=== PATIENT | female | born 1950 | race Caucasian/White ===

== ENCOUNTER → 2024-07-12 | Outpatient (CLI) | payer MEDICARE, BC, SELFPAY ==
[2024-07-12 15:13] LABS: Collection Type, Urine Clean Catch
[2024-07-12 15:33] LABS: Basophils % (Auto) 1 % (0-2.5); Eosinophils # (Auto) 0.2 Thou/mm3 (0.0-0.5); Eosinophils % (Auto) 3 % (0-10); Hematocrit 39.4 % (36.0-46.0); Hemoglobin 13.6 g/dL (12.0-16.0); Immature Granulocytes % (Auto) 0 % (0-0); Immature Granulocytes Auto 0.03 Thou/mm3 (0.00-0.00); Lymphocytes # (Auto) 2.1 Thou/mm3 (1.0-4.8); Lymphocytes % (Auto) 30 % (10-50); Mean Corpuscular HGB Conc 34.5 g/dl (31.0-37.0); Mean Corpuscular Hemoglobin 29.5 pg (25.0-35.0); Mean Corpuscular Volume 86 fL (80-100); Monocytes # (Auto) 0.5 Thou/mm3 (0.0-0.8); Monocytes % (Auto) 7 % (0-12); Neutrophils # (Auto) 4.2 Thou/mm3 (1.8-7.7); Neutrophils % (Auto) 59 % (37-80); Nucleated Red Blood Cell % 0 /100 WBC (0); Platelet Count 230 Thou/mm3 (140-440); Red Blood Count 4.61 Miln/mm3 (4.00-5.20)
[2024-07-12 15:56] LABS: Bacteria,Urine 4+; Bilirubin,Urine Negative (Negative); Blood,Urine Negative (Negative); Clarity,Urine Clear (Clear/Hazy); Color,Urine Lt-Yellow (Lt Yel-Yel); Glucose, Urine Negative (Negative); Ketones,Urine Negative (Negative); Leukocyte Esterase,Urine Positive (Negative); Nitrite,Urine Negative (Negative); Protein,Urine Negative (Neg - Trace); RBC,Urine 1 /hpf (0-3); Specific Gravity,Urine 1.007 (1.001-1.035); Squamous Epithelial Cell,Urine < 1 /hpf (0-5); Urobilinogen,Urine Negative mg/dL (0.0-1.0); WBC,Urine 40 /hpf (0-5)
[2024-07-12 16:17] LABS: Alanine Aminotransferase 29 U/L (10-49); Albumin, Serum 4.5 gm/dL (3.4-4.8); Alkaline Phosphatase 43 U/L (46-116); Anion Gap 10 (7-16); Aspartate Amino Transferase 24 U/L (0-34); BUN/Creatinine Ratio 12 Ratio (12-20); Bilirubin,Total 1.1 mg/dL (0.3-1.2); Blood Urea Nitrogen 12 mg/dL (9-23); Calcium 9.9 mg/dL (8.3-10.6); Calcium (Corrected) 9.9 mg/dL (8.5-10.1); Carbon Dioxide 27.6 mMol/L (20.0-31.0); Cardiac Risk Estimate 3.4 RATIO (3.7-5.6); Chloride 101 mMol/L (98-107); Cholesterol 150 mg/dL (132-200); Globulin 2.3 gm/dL (2.3-3.5); Glucose 110 mg/dL (74-106); HDL Cholesterol 44 mg/dL (40-60); LDL Cholesterol,Calculated 79 mg/dL (0-130); Osmolality,Calculated 278 (275-295); Potassium 3.9 mMol/L (3.4-5.1); Sodium 139 mMol/L (136-145); Thyroid Stimulating Hormone 1.08 uIU/mL (0.55-4.78); Total Protein 6.8 gm/dL (5.7-8.2); Triglycerides 136 mg/dL (30-150); eGFR 60 See Note
== END | disposition home or self-care (01) ==
PROVIDERS: PCP Family Medicine; Referring Provider Family Medicine; Visit Provider Family Medicine
DX: I10 Essential (primary) hypertension (principal); N83.202 Unspecified ovarian cyst, left side; E78.5 Hyperlipidemia, unspecified
CPT/HCPCS: 36415; 80053; 80061; 81001; 84443; 85025; 86304